=== PATIENT | female | born 1945 | race Hispanic/Latino ===

== ENCOUNTER 2017-07-28 12:38 | Outpatient (CLI) | payer MEDICARE | END 2017-07-28 12:39 | disposition home or self-care (01) | LOC: BICMAMMO 12:38 | PROVIDERS: ATTEND Obstetrics & Gynecology | DX: Z12.31 Encounter for screening mammogram for malignant neoplasm of breast (principal) | CPT/HCPCS: 77063; 77067 ==

== ENCOUNTER 2017-09-10 15:55 | Outpatient (CLI) | payer MEDICARE ==
[2017-09-10 17:06] LABS: Hemoglobin 14.5 g/dL (12.0-16.0); Mean Corpuscular HGB CONC 33.3 g/dL (32.0-36.0); Mean Corpuscular Volume 84.1 fl (81.0-99.0); Mean Platelet Volume 7.6 fL (7.4-10.4); Platelet Count 184 thou/uL (130-400); RBC Distribution Width 12.1 % (11.5-14.5); Red Blood Cell (RBC) Count 5.16 mill/uL (4.20-5.40); White Blood Cell (WBC) Count 5.9 thou/uL (4.8-10.8)
[2017-09-10 17:33] LABS: Anion Gap 12 mmol/L (10-20); BUN (Urea Nitrogen) 21 mg/dL (9.8-20.1); Calc. Creatinine Clearance 0 mL/min (70-130); Carbon Dioxide 29 mmol/L (23-31); Chloride 103 mmol/L (98-107); Estimated GFR-MDRD 81; Glucose 100 mg/dL (83-110); Potassium 4.5 mmol/L (3.5-5.1); Sodium 139 mmol/L (136-145)
--- NOTE | 2017-09-10 17:42 | RAD ---
PA AND LATERAL VIEWS OF THE CHEST 09/10/17 HISTORY: Preoperative evaluation. FINDINGS: Comparison is made with exam of 11/02/07. The heart size is normal. The lungs are expanded without focal areas of consolidation, pneumothorax o r pleural effusions. There are degenerative changes in the spine. IMPRESSION: No radiographic evidence of acute cardiopulmonary process. POS: [facility]
== END 2017-09-10 15:56 | disposition home or self-care (01) ==
LOC: LABBT 15:55
PROVIDERS: ATTEND Obstetrics & Gynecology
DX: Z01.818 Encounter for other preprocedural examination (principal); N95.0 Postmenopausal bleeding
CPT/HCPCS: 71046; 80048; 85027; 86850; 86900; 86901

== ENCOUNTER 2017-09-13 09:48 | Day surgery (SDC) | payer MEDICARE ==
[2017-09-10 16:11] VITALS: BMI 27.1
--- NOTE | 2017-09-10 23:05 | HP ---
CHIEF COMPLAINT: Abnormal ultrasound and history of abdominal pain. 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 She had a work up for some abdominal pain by her booster operator and when I got the report months later showed th at she had thickened endometrium from sometime in the summer of 2016. We repeated the ultrasound in our office in early 07/2017 and indeed her endometrium was the same approximately 13 mm in thickness and it should be less than 4 mm. An endometrial biopsy revealed benign atrophic tissue but was elect ed to proceed with D&C for definitive diagnosis to make sure there was no evidence of malignancy or p remalignancy. PAST MEDICAL HISTORY: Reveals that she has got some mild hypertension, mild glucose intolerance. ALLERGIES: She is allergic to IVP DYE and possibly PENICILLIN. She has had no major surgeries. FAMILY HISTORY: Unremarkable. 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 REVIEW OF SYSTEMS: Unremarkable with no head, neck, respiratory, cardiac, or abdominal problems at [facility]. Her extremities were unremarkable. PHYSICAL EXAMINATION: VITAL SIGNS: Shows her to have normal vital signs. Her blood pressure is 120/70, pulse is 90 and re gular, respirations 18. She weighs 156 pounds, 62 inches tall with a BMI of 28.5. HEENT: Unremarkable with normal breast exam. HEART: Regular rate and rhythm without murmurs or gallops. ABDOMEN: Benign. GENITOURINARY: Shows a normal mid position uterus that has grade 2-3 prolapse with no obvious cervic al lesions and her most recent Pap smear in 2013 was negative and negative HPV at that time. EXTREMITIES: Unremarkable. MEDICATIONS: She IS taking metformin 500 mg b.i.d. and ramipril 2.5 mg daily. LABORATORY: The only thing that she got standard preoperative laboratories including a CBC, type and screen, and chemistry profile. In addition, she had the ultrasound reported as previously noted. IMPRESSION: Abnormal endometrial thickness on ultrasound with no symptoms. Plan is for hysteroscopy, D&C, and possible mild TruClear resection of polyp. She has been given inf ormed consent and understands the risk of bleeding, infection, possible uterine perforation and fluid overload from the hysteroscopy. These are all aware and she is prepared for the risk. She wants an anesthesiologist to her anesthesia and we have tried to make arrangements in that vein. She will see me in follow up in 2 weeks and she knows to be n.p.o. preoperatively before surgery on , 09/13/2017.
[2017-09-13] MEDS ORDERED: Fentanyl 100 MCG/2 ML VIAL ONE (11:08)
[2017-09-13] MEDS ORDERED: Bupivacaine HCl 0.5%/Epinephrine 1:200,000/PF 30 ml Vial ONE (11:35)
[2017-09-13] MEDS ORDERED: Midazolam HCl 2 mg/2 ml Vial ONE (11:36)
--- NOTE | 2017-09-14 09:38 | OP ---
PREOPERATIVE DIAGNOSES: Postmenopausal with an intrauterine mass. POSTOPERATIVE DIAGNOSES: Postmenopausal with an intrauterine mass, moderately large sessile, posteri or endometrial polyp. Pathology pending. SURGEON: Jose Bullock M.D. ANESTHESIA: LMA sedation by Dr. Jimmy Hendrix. OPERATIVE FINDINGS: Included relatively prolapsed uterus with grossly normal cervix and endometrial polyp that was about 5 cm within the uterine cavity and measured approximately 2-2.5 x 2 cm. It had no malignancy, just had some minimal vessels on the surface and the remainder of the uterus was mouna l. OPERATIVE COMPLICATIONS: None. BLOOD LOSS: Less than 20 mL. PROCEDURE IN DETAIL: The patient was given informed consent, taken to the operating room, where she was sedated, prepped and draped and placed in modified lithotomy position. Exam under anesthesia was performed. A bivalve speculum was placed in the vagina. The cervix was grasped with tenaculum and then the uterus was dilated with successive dilators to a #15 Fernando dilator. A 6-mm hysteroscope was inserted using saline to view the cavity. Good visualization was obtained. The pathology identified and the small TruClear resection device was placed within the hysteroscope and was used systematical ly suction curette the entire polyp. (Video photographs were available). There was no bleeding. Th e patient was taken to the recovery room and tolerated the procedure and anesthesia well within appro ximately 2 hours felt to be ready for discharge, called by the discharge nurse she had minimal spotti ng, had no unusual pain, had already received some IV Toradol in the operating room and wanted to go home. The patient was taken to the recovery room in good condition
--- NOTE | 2017-09-14 09:44 | OP ---
Anya Whiteside is a 71-year-old, , multipara with an intrauterine mass within her uterine ca vity at the time of the CT scan, but it was not sent to me until after I requested the record several months later. She had no bleeding or pain and repeat ultrasound showed the mass of the similar size approximately 2 cm within the uterine cavity, but it did not show where the polyp or thickened endom etrium. Endometrial biopsy was negative and her Pap smears have been negative. On 09/13/2017, under LMA anesthesia, the patient underwent a hysteroscopic resection of the moderate size polyp. (Please see video photographs and pathology for further details). Her preoperative labo ratory, EKG, base met, and CBC were normal as well as her chest x-ray. HOSPITAL COURSE: After surgery, she was ready to go home and approximately 2 hours, she had minimal bleeding and almost no cramping and had received IV 15 mg Toradol in the operating room. IMPRESSION AND FINAL DIAGNOSES: Postmenopausal intrauterine mass with believed to be sessile benign polyp. Pathology pending. PLAN: Discharge the patient home on the patient's usual medications and she will follow up. She garrett l use Advil to give her pain relief if she is needed and she has the followup appointments that are f or 2 weeks. Warnings and instructions were given, both written and verbal.
== END 2017-09-13 15:30 | disposition home or self-care (01) ==
LOC: SDC 09:48 → EEVIPCON 16:00
PROVIDERS: ATTEND Obstetrics & Gynecology
PROC: 0UBC8ZX Excision of Cervix, Via Natural or Artificial Opening Endoscopic, Diagnostic (ICD-10-PCS; principal; 2017-09-13)
DX: N84.0 Polyp of corpus uteri (principal); N95.0 Postmenopausal bleeding; I10 Essential (primary) hypertension; Z88.0 Allergy status to penicillin; Z91.041 Radiographic dye allergy status; Z98.890 Other specified postprocedural states
CPT/HCPCS: 88305; J0670; J2250; J3010

== ENCOUNTER 2017-11-23 09:15 | Outpatient (CLI) | payer MEDICARE | END 2017-11-23 09:16 | disposition home or self-care (01) | LOC: BICULT 09:15 | PROVIDERS: ATTEND Internal Medicine | DX: K76.0 Fatty (change of) liver, not elsewhere classified (principal); R10.12 Left upper quadrant pain; N13.30 Unspecified hydronephrosis | CPT/HCPCS: 76700 ==

== ENCOUNTER 2017-11-26 08:31 | Outpatient (CLI) | payer MEDICARE ==
--- NOTE | 2017-11-26 12:07 | CT ---
CT ABDOMEN AND PELVIS WITH AND WITHOUT IV CONTRAST: Date: 11/26/17 HISTORY: Hydronephrosis. Abnormal sonogram. COMPARISON: Sonogram dated 11/23/17. FINDINGS: Tiny nonspecific subpleural nodules are present at the lung bases. Each renal collecting system, uret er, and the urinary bladder are decompressed without stone evident. Minimal distention of the left re nal collecting system is below the threshold for diagnosis of hydronephrosis on this exam. Small para pelvic cysts are associated with the left kidney. Tiny cortical cysts bilateral kidneys. No filling d efects are apparent within the urinary system on the delayed images. Mild calcification arterial structures. Liver is diffusely hypodense. Degenerative changes lumbar spi ne. Tiny dystrophic calcification medial limb left adrenal gland. IMPRESSION: 1. No urinary tract abnormalities are apparent on the left. No significant hydronephrosis. Incidenta l type findings are as detailed above. 2. Hepatic steatosis. 3. Mild atherosclerosis. POS: [facility]
[2017-11-26] MEDS ORDERED: Iopamidol 370 76% 100 ML VIAL ONE (13:07)
== END 2017-11-26 08:32 | disposition home or self-care (01) ==
LOC: CT 08:31
PROVIDERS: ATTEND Internal Medicine
DX: R93.5 Abnormal findings on diagnostic imaging of other abdominal regions, including retroperitoneum (principal); K76.0 Fatty (change of) liver, not elsewhere classified; I70.90 Unspecified atherosclerosis
CPT/HCPCS: 74178; 82565

== ENCOUNTER 2018-07-01 09:45 | Outpatient (CLI) | payer MEDICARE ==
--- NOTE | 2018-07-01 12:39 | ULT ---
ULTRASOUND HEPATIC DOPPLER: HISTORY: Nonalcoholic fatty liver, 571.8. Irritable bowel syndrome. COMPARISON: Ultrasound from 11/23/[address] of 11/26/2017. FINDINGS: There is diffusely increased hepatic echotexture. No abnormal nodularity. No mass. The liver measures 13.8 cm in length. The spleen measures 7 x 4.2 x 3.7 cm. Gallbladder is normal. No stones or sludge. Gallbladder wall thickness is normal. Sonographic Murp hy's sign is negative. Common bile duct is normal measuring 4 mm. Visualized portion of the pancreas is normal. There is normal waveform velocity and directional flow of the hepatic artery, hepatic vein, and halina l vein. IMPRESSION: 1. Increased hepatic echotexture indicating steatosis. 2. No abnormal mass. 3. No evidence of cirrhosis. 4. Normal phasicity, velocity, and directional flow. POS: [facility]
== END 2018-07-01 09:46 | disposition home or self-care (01) ==
LOC: BICULT 09:45
PROVIDERS: ATTEND Internal Medicine Gastroenterology
DX: K76.0 Fatty (change of) liver, not elsewhere classified (principal); K58.9 Irritable bowel syndrome, unspecified; R10.33 Periumbilical pain; Z86.010 Personal history of colon polyps
CPT/HCPCS: 76705

== ENCOUNTER 2018-07-29 09:49 | Outpatient (CLI) | payer MEDICARE | END 2018-07-29 09:50 | disposition home or self-care (01) | LOC: BICMAMMO 09:49 | PROVIDERS: ATTEND Obstetrics & Gynecology | DX: Z12.31 Encounter for screening mammogram for malignant neoplasm of breast (principal); R92.1 Mammographic calcification found on diagnostic imaging of breast; Z80.3 Family history of malignant neoplasm of breast | CPT/HCPCS: 77063; 77067 ==

== ENCOUNTER 2019-02-16 09:46 | Outpatient (CLI) | payer MEDICARE ==
--- NOTE | 2019-02-16 11:46 | BD ---
DEXA BONE DENSITY STUDY: Date: 02/16/19 HISTORY: 73-year-old postmenopausal female for screening. COMPARISON: 10/14/16. FINDINGS: Lumbar Spine: BMD (g/cm2) L1 0.951 T-Score: -0.4 L2 0.984 T-Score: -0.4 L3 0.926 T-Score: -1.4 L4 0.890 T-Score: -1.6 L1-L4 0.934 T-Score: -1.0 Femoral Neck: 0.861 T-Score: 0.1 Total Femur: 0.955 T-Score: 0.1 IMPRESSION: Normal bone mineral density. POS: [facility]
== END 2019-02-16 09:47 | disposition home or self-care (01) ==
LOC: BICMAMMO 09:46
PROVIDERS: ATTEND Obstetrics & Gynecology
DX: Z13.820 Encounter for screening for osteoporosis (principal)
CPT/HCPCS: 77080

== ENCOUNTER 2019-05-12 08:30 | Outpatient (CLI) | payer MEDICARE ==
[2019-05-12] MEDS ORDERED: Gadobenate Dimeglumine 529 MG/1 ML (20ML VIAL) ONE (09:00)
[2019-05-12 09:18] LABS: Follow-up Chemistry Comp? YES; Follow-up Result - Chemistry REPORT FAXED
--- NOTE | 2019-05-12 11:43 | MRI ---
MRI BRAIN WITH AND WITHOUT CONTRAST: 05/12/2019 HISTORY: Right-sided proptosis. COMPARISON: 03/19/2017 TECHNIQUE: Multiplanar, multisequence MR imaging of the brain obtained with and without contrast. FINDINGS: The diffusion weighted imaging demonstrates no evidence for acute infarction. 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 Regional bone marrow signal intensity appears within normal limits. There is a partially empty sella turcica. Imaged paranasal sinuses/mastoid air cells demonstrate mild mucosal thickening of the right maxillary sinus. There is mild cerebral volume loss near the vertex. No midline shift or mass effect. No ventricular e nlargement. No significant exophthalmos/proptosis is appreciated. The right globe could possibly be slightly ante riorly located when compared to the left. The intraconal and extraconal fat appears unremarkable bilaterally. The extraocular muscles appear normal and symmetric bilaterally. The globes demonstrate normal symmetric signal intensity. The optic nerves are normal in course, size and signal intensity. Axial T2 weighted imaging demonstrates a grossly unremarkable appearance of the arterial flow voids a t the axial level of the skull base. Post contrast imaging demonstrates no abnormal enhancement involving either orbit or globe. IMPRESSION: No acute findings. Incidental findings as detailed above. Transcribed Date/Time: 05/12/2019 12:32 PM
== END 2019-05-12 08:31 | disposition home or self-care (01) ==
LOC: SCSMRI 08:30
PROVIDERS: ATTEND Ophthalmology
DX: H05.241 Constant exophthalmos, right eye (principal)
CPT/HCPCS: 36415; 70553; 82565; A9577

== ENCOUNTER 2019-08-02 09:50 | Outpatient (CLI) | payer MEDICARE ==
--- NOTE | 2019-08-02 11:11 | MMO ---
Bilateral MAMMO Bilat Screen [facility]. CLINICAL HISTORY: Patient is 73 years old and is seen for screening. The patient has no family history of breast cancer. The patient has no personal history of cancer. VIEWS: The views performed were: bilateral craniocaudal with tomosynthesis and bilateral mediolateral oblique with tomosynthesis. FILMS COMPARED: The present examination has been compared to prior imaging studies performed at [facility] on 06/11/2015, 06/18/2016, 07/28/2017 and 07/29/2018. This study has been interpreted with the assistance of computer-aided detection. MAMMOGRAM FINDINGS: There are scattered fibroglandular densities. There are stable benign appearing calcifications seen in both breasts. There are no suspicious masses, suspicious calcifications, or new areas of architectural distortion. IMPRESSION: THERE IS NO MAMMOGRAPHIC EVIDENCE OF MALIGNANCY. A ROUTINE FOLLOW-UP MAMMOGRAM IN 1 YEAR IS RECOMMENDED. THE RESULTS OF THIS EXAM WERE SENT TO THE PATIENT. ACR BI-RADS Category 2 - Benign finding MAMMOGRAPHY NOTE: 1. A negative mammogram report should not delay a biopsy if a dominant of clinically suspicious mass is present. 2. Approximately 10% to 15% of breast cancers are not detected by mammography. 3. Adenosis and dense breasts may obscure an underlying neoplasm. Reported by: DELIA RAI MD Electonically Signed: [id number]
== END 2019-08-02 09:51 | disposition home or self-care (01) ==
LOC: BICMAMMO 09:50
PROVIDERS: ATTEND Obstetrics & Gynecology
DX: Z12.31 Encounter for screening mammogram for malignant neoplasm of breast (principal)
CPT/HCPCS: 77063; 77067

== ENCOUNTER 2019-09-07 09:02 | Outpatient (CLI) | payer MEDICARE ==
--- NOTE | 2019-09-07 11:49 | ULT ---
HEPATIC ULTRASOUND: Date: 09/07/2019 HISTORY: Abnormal liver function tests. FINDINGS: Real-time imaging of the upper abdomen shows some sludge within a slightly distended gallbladder. No gallbladder wall thickening. The common duct is normal in caliber at 5 mm. Liver has a coarse echogen ic texture. It measures 15.8 cm in length. DOPPLER EVALUATION WITH SPECTRAL ANALYSIS: Normal flow pattern is shown within the liver. Spleen is within normal limits of size. It measures 7.8 cm. Pancreas is fairly well imaged with the exception of the pancreatic tail and appears unremarkable. Ri ght kidney is never visualized on this exam. IMPRESSION: 1. Coarse echogenic texture to the liver compatible with fatty change. 2. Some minimal sludge within the gallbladder. No gallstones. POS: [facility]
== END 2019-09-07 09:03 | disposition home or self-care (01) ==
LOC: BICULT 09:02
PROVIDERS: ATTEND Internal Medicine Gastroenterology
DX: K76.0 Fatty (change of) liver, not elsewhere classified (principal); K76.89 Other specified diseases of liver; K82.8 Other specified diseases of gallbladder
CPT/HCPCS: 76705

== ENCOUNTER 2020-08-07 14:44 | Outpatient (CLI) | payer MEDICARE ==
--- NOTE | 2020-08-07 15:51 | MMO ---
Bilateral MAMMO Bilat Screen [facility]. CLINICAL HISTORY: Patient is 74 years old and is seen for screening. The patient has no family history of breast cancer. The patient has no personal history of cancer. VIEWS: The views performed were: bilateral craniocaudal with tomosynthesis and bilateral mediolateral oblique with tomosynthesis. FILMS COMPARED: The present examination has been compared to prior imaging studies performed at [facility] on 06/18/2016, 07/28/2017, 07/29/2018 and 08/02/2019. This study has been interpreted with the assistance of computer-aided detection. MAMMOGRAM FINDINGS: There are scattered fibroglandular densities. There are benign appearing calcifications seen in both breasts. There are no suspicious masses, suspicious calcifications, or new areas of architectural distortion. IMPRESSION: THERE IS NO MAMMOGRAPHIC EVIDENCE OF MALIGNANCY. A ROUTINE FOLLOW-UP MAMMOGRAM IN 1 YEAR IS RECOMMENDED. THE RESULTS OF THIS EXAM WERE SENT TO THE PATIENT. ACR BI-RADS Category 2 - Benign finding MAMMOGRAPHY NOTE: 1. A negative mammogram report should not delay a biopsy if a dominant of clinically suspicious mass is present. 2. Approximately 10% to 15% of breast cancers are not detected by mammography. 3. Adenosis and dense breasts may obscure an underlying neoplasm. Reported by: DAFNE LABOY MD Electonically Signed: [id number]
== END 2020-08-07 14:45 | disposition home or self-care (01) ==
LOC: BICMAMMO 14:44
PROVIDERS: ATTEND Obstetrics & Gynecology
DX: Z12.31 Encounter for screening mammogram for malignant neoplasm of breast (principal)
CPT/HCPCS: 77063; 77067

== ENCOUNTER 2021-04-14 09:41 | Outpatient (CLI) | payer MEDICARE, OTHER | END 2021-04-14 09:42 | disposition home or self-care (01) | LOC: SCSRAD 09:41 | PROVIDERS: ATTEND Psychiatry & Neurology Neurology | DX: G63 Polyneuropathy in diseases classified elsewhere (principal) ==

== ENCOUNTER 2021-08-12 15:05 | Outpatient (CLI) | payer MEDICARE, OTHER | END 2021-08-12 15:06 | disposition home or self-care (01) | LOC: BICMAMMO 15:05 | PROVIDERS: ATTEND Obstetrics & Gynecology | DX: Z12.31 Encounter for screening mammogram for malignant neoplasm of breast (principal); Z80.3 Family history of malignant neoplasm of breast | CPT/HCPCS: 77063; 77067 ==

== ENCOUNTER 2021-09-12 09:08 | Outpatient (CLI) | payer MEDICARE, OTHER | END 2021-09-12 09:09 | disposition home or self-care (01) | LOC: BICULT 09:08 | PROVIDERS: ATTEND Internal Medicine Gastroenterology | DX: K57.30 Diverticulosis of large intestine without perforation or abscess without bleeding (principal); K76.0 Fatty (change of) liver, not elsewhere classified; R10.9 Unspecified abdominal pain; Z86.010 Personal history of colon polyps | CPT/HCPCS: 76700 ==

== ENCOUNTER 2022-08-21 14:02 | Outpatient (CLI) | payer MEDICARE, OTHER | END 2022-08-21 14:03 | disposition home or self-care (01) | LOC: BICMAMMO 14:02 | PROVIDERS: ATTEND Obstetrics & Gynecology | DX: Z12.31 Encounter for screening mammogram for malignant neoplasm of breast (principal); N64.89 Other specified disorders of breast; Z80.3 Family history of malignant neoplasm of breast | CPT/HCPCS: 77063; 77067 ==

== ENCOUNTER → 2022-08-31 | Day surgery (SDC) | payer MEDICARE, OTHER | END | disposition home or self-care (01) | LOC: BICULT 11:59 | PROVIDERS: ATTEND Obstetrics & Gynecology | PROC: 0H9T3ZX Drainage of Right Breast, Percutaneous Approach, Diagnostic (ICD-10-PCS; principal; 2022-08-31) | DX: C50.411 Malignant neoplasm of upper-outer quadrant of right female breast (principal); Z17.0 Estrogen receptor positive status [ER+]; Z88.0 Allergy status to penicillin; Z91.041 Radiographic dye allergy status | CPT/HCPCS: 19083; 88305; 88341; 88342; 88361 ==

== ENCOUNTER 2022-09-21 11:48 | Outpatient (CLI) | payer MEDICARE, OTHER ==
[2022-09-21 13:04] LABS: #Monocytes 0.3 10x3/uL (0.0-1.1); #Neutrophils 2.3 10x3/uL (1.5-8.4); %Basophils 0.2 % (0.0-2.0); %Eosinophils 0.9 % (0.0-6.0); %Lymphocytes 40.9 % (18.0-47.0); %Neutrophils 50.6 % (40.0-75.0); Hemoglobin 13.8 g/dL (12.0-15.5); Mean Corpuscular HGB CONC 31.6 g/dL (32.0-36.0); Mean Corpuscular Hemoglobin 26.9 pg (27.0-33.0); Mean Corpuscular Volume 85.2 fl (81.6-98.3); Mean Platelet Volume 9.6 fl (7.4-10.4); Platelet Count 214 10x3/uL (150-450); RBC Distribution Width 13.1 % (11.5-14.5); Red Blood Cell (RBC) Count 5.13 10x6/uL (3.90-5.03); White Blood Cell (WBC) Count 4.6 10x3/uL (3.5-10.5)
[2022-09-21 13:26] LABS: INR-International Normal Ratio 0.9; PTT 24.5 sec (22.0-33.0); Prothrombin Time 10.1 sec (9.5-12.1)
[2022-09-21 13:29] LABS: ALT (SGPT) 21 U/L (8-55); AST (SGOT) 21 U/L (5-34); Albumin 4.7 g/dL (3.4-4.8); Alkaline Phosphatase 52 U/L (40-110); Bilirubin, Direct 0.1 mg/dL (0.1-0.3); Bilirubin, Total 0.3 mg/dL (0.2-1.2); Protein, Total 7.1 g/dL (5.8-8.1)
== END 2022-09-21 11:49 | disposition home or self-care (01) ==
LOC: LABBT 11:48
PROVIDERS: ATTEND Specialist
DX: Z01.818 Encounter for other preprocedural examination (principal); C50.911 Malignant neoplasm of unspecified site of right female breast
CPT/HCPCS: 71046; 80076; 85025; 85610; 85730; 93005; 93010

== ENCOUNTER 2022-09-24 07:24 | Day surgery (SDC) | payer MEDICARE, OTHER ==
[2022-09-22 14:11] VITALS: BMI 26.9
[2022-09-24] MEDS ORDERED: Ketorolac Tromethamine 30 MG/ML VIAL ONE (10:00)
[2022-09-24] MEDS ORDERED: Bupivacaine/Epinephrine 0.25% 30 ML VIAL ONE ×2 (10:07→11:12)
[2022-09-24] MEDS ORDERED: Isosulfan Blue 50 MG/5 ML VIAL ONE (10:07)
[2022-09-24] MEDS ORDERED: Lidocaine 2% PF 5 ML VIAL ONE (10:07)
[2022-09-24] MEDS ORDERED: Sodium Chloride 0.9% 100 ML ONE (10:19)
[2022-09-24] MEDS ORDERED: CEFAZOLIN 2 GM VIAL ONE (10:19)
[2022-09-24] MEDS ORDERED: fentaNYL PF 100 MCG/2 ML SYRINGE ONE (10:20)
[2022-09-24] MEDS ORDERED: PROPOFOL 200 MG/20 ML VIAL ONE (10:42)
[2022-09-24] MEDS ORDERED: Dexamethasone 20 MG/5 ML VIAL ONE (10:42)
[2022-09-24] MEDS ORDERED: Lidocaine 1% PF 5 ML VIAL ONE (10:42)
[2022-09-24] MEDS ORDERED: Ondansetron PF 4 MG/2 ML Vial ONE ×2 (10:42→13:21)
[2022-09-24] MEDS ORDERED: ePHEDrine 50 MG/ML VIAL ONE (10:42)
== END 2022-09-24 15:32 | disposition home or self-care (01) ==
LOC: NM 07:24
PROVIDERS: ATTEND Specialist
PROC: 0HBT0ZZ Excision of Right Breast, Open Approach (ICD-10-PCS; principal; 2022-09-24)
PROC: 07B50ZX Excision of Right Axillary Lymphatic, Open Approach, Diagnostic (ICD-10-PCS; 2022-09-24)
DX: C50.411 Malignant neoplasm of upper-outer quadrant of right female breast (principal); Z17.0 Estrogen receptor positive status [ER+]; Z79.84 Long term (current) use of oral hypoglycemic drugs; Z79.890 Hormone replacement therapy; Z79.899 Other long term (current) drug therapy; Z88.0 Allergy status to penicillin; Z91.011 Allergy to milk products; Z91.041 Radiographic dye allergy status
CPT/HCPCS: 19301; 38525; 38900; 76098; 78195; A9541; C1713; Q9968; 88307; 88341; 88342; J1100; J1885; J2001; J2405; J2704; J3490

== ENCOUNTER 2023-04-07 14:27 | Outpatient (CLI) | payer MEDICARE | END 2023-04-07 14:28 | disposition home or self-care (01) | LOC: BICMAMMO 14:27 | PROVIDERS: ATTEND Internal Medicine | DX: Z13.820 Encounter for screening for osteoporosis (principal); M85.88 Other specified disorders of bone density and structure, other site | CPT/HCPCS: 77080 ==

== ENCOUNTER 2023-11-23 08:22 | Outpatient (CLI) | payer MEDICARE, OTHER ==
[2023-11-23] MEDS ORDERED: Iopamidol 370 76% 100 ML VIAL ONE (08:56)
== END 2023-11-23 08:23 | disposition home or self-care (01) ==
LOC: CT 08:22
PROVIDERS: ATTEND Internal Medicine
DX: R10.9 Unspecified abdominal pain (principal); N13.30 Unspecified hydronephrosis; N20.0 Calculus of kidney; N28.1 Cyst of kidney, acquired; K57.30 Diverticulosis of large intestine without perforation or abscess without bleeding; N28.89 Other specified disorders of kidney and ureter; I70.0 Atherosclerosis of aorta; I70.8 Atherosclerosis of other arteries; M47.816 Spondylosis without myelopathy or radiculopathy, lumbar region; M89.8X8 Other specified disorders of bone, other site; E27.49 Other adrenocortical insufficiency; R91.1 Solitary pulmonary nodule
CPT/HCPCS: 74177; Q9967